=== PATIENT | male | born 1960 | race Caucasian/White ===

== ENCOUNTER → 2017-01-02 | Outpatient (CLI) | payer SELFPAY | LOC: RAD 16:28 | DX: J40 Bronchitis, not specified as acute or chronic (principal) ==

== ENCOUNTER 2022-11-09 20:14 | Emergency (ER) | payer OTHER ==
[~2022-11-09] VITALS: Ht 182.9 cm; Wt 75.5 kg
[2022-11-09 21:28] VITALS: BP 120/78
== END 2022-11-09 21:28 | disposition home or self-care (01) ==
LOC: ED 20:14
DX: S05.02XA Injury of conjunctiva and corneal abrasion without foreign body, left eye, initial encounter (principal); Z88.0 Allergy status to penicillin; Z28.310 Unvaccinated for COVID-19; W22.8XXA Striking against or struck by other objects, initial encounter; Y93.89 Activity, other specified
CPT/HCPCS: J1885